=== PATIENT | male | born 1965 | race Caucasian/White ===

== ENCOUNTER 2017-11-19 10:38 | Emergency (ER) | payer MEDICARE, OTHER ==
[~2017-11-19] VITALS: Ht 165.1 cm; Wt 90.7 kg
[2017-11-19] MEDS ORDERED: LEVOTHYROXINE50 MCG PO (11:25)
[2017-11-19] MEDS ORDERED: LOPRESSOR25 MG PO (11:25)
[2017-11-19] MEDS ORDERED: GABAPENTIN100 MG (11:26)
[2017-11-19] MEDS ORDERED: METFORMIN HCL500 MG PO (11:27)
[2017-11-19] MEDS ORDERED: ATORVASTATIN CA20 MG PO (11:27)
[2017-11-19] MEDS ORDERED: MORPHINE SULFAT30 M2 PO (11:28)
[2017-11-19 11:34] VITALS: BP 150/78
== END 2017-11-19 11:36 | disposition home or self-care (01) ==
LOC: FSED 10:38
DX: K08.89 Other specified disorders of teeth and supporting structures (principal); K02.9 Dental caries, unspecified; J02.9 Acute pharyngitis, unspecified; I10 Essential (primary) hypertension
CPT/HCPCS: 83518; 99283